=== PATIENT | male | born 1975 | race Caucasian/White ===

== ENCOUNTER 2017-02-17 00:02 | Inpatient (IN) | payer OTHER ==
[2017-02-17] VITALS (11 sets, daily range): BP systolic 98–130; BP diastolic 55–87; PULSE 64–85; RESP 15–20; TEMP 95.3–99.6; O2SAT 96–100
[~2017-02-17] VITALS: Ht 177.8 cm; Wt 61.0 kg
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
[2017-02-17] MEDS ORDERED: IOHEXOL 350 MG/ML 10 ML VIAL (for RAD DIAG) IVCONTRAST ONE (00:34)
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
[2017-02-17 00:36] LABS: I-STAT POTASSIUM 3.6 MMOL/L (3.5-4.9); I-STAT SODIUM 140 MMOL/L (138-146)
[2017-02-17] MEDS ORDERED: SODIUM CHLOR 0.9% 1000 ML INJ 1,000 ML IV SCH (00:39)
[2017-02-17] MEDS ORDERED: SODIUM CHLORIDE 0.9% FLUSH 10 ML FLUSH IVF PRN (00:45)
[2017-02-17] MEDS ORDERED: ceFAZolin 2 GM PREMIX 50 ML IV ONE (00:45)
[2017-02-17] MEDS ORDERED: ONDANSETRON HCL 4 MG/2 ML VIAL IVP ONE (00:45)
[2017-02-17] MEDS ORDERED: MORPHINE SULFATE 4 MG/ML INJ IV ONE (00:45)
[2017-02-17 00:46] LABS: APTT (PATIENT) 23.6 SEC (24.3-30.1); PROTHROMBIN TIME - PATIENT 10.7 SEC (9.8-11.6)
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
[2017-02-17 01:00] LABS: ALCOHOL LESS THAN 3 MG/DL (0-5)
[2017-02-17] MEDS ORDERED: Post-op Orders (for Pharmacy) MISC XX ONE (01:00)
[2017-02-17] MEDS ORDERED: ONDANSETRON HCL 4 MG/2 ML VIAL IV PRN (01:00)
[2017-02-17] MEDS ORDERED: SODIUM CHLORIDE 0.9% FLUSH 10 ML FLUSH IV FLUSH PRN (01:00)
[2017-02-17] MEDS ORDERED: NALOXONE HCL 0.4 MG/ML AMP IV PRN ×2 (01:00)
[2017-02-17 01:01] LABS: AUTOMATED NEUTROPHIL # 9.5 TH/MM3 (1.8-7.7); BASOPHIL # 0.1 TH/MM3 (0-0.2); BASOPHIL % 0.6 % (0.0-2.0); EOSINOPHIL % 6.9 % (0.0-4.0); HEMATOCRIT 39.3 % (39.0-51.0); HEMO FLAGS DIFF FINAL; LYMPH % 20.3 % (9.0-44.0); MEAN CELL VOLUME 93.9 FL (80.0-100.0); MEAN CORPUSCULAR HEMOGLOBIN 31.1 PG (27.0-34.0); MEAN CORPUSCULAR HGB CONC 33.1 % (32.0-36.0); MONO % 7.3 % (0.0-8.0); NEUT % 64.9 % (16.0-70.0); PLATELET COUNT 354 TH/MM3 (150-450); RED BLOOD COUNT 4.18 MIL/MM3 (4.50-5.90); RED CELL DISTRIBUTION WIDTH 12.8 % (11.6-17.2); WHITE BLOOD COUNT 14.7 TH/MM3 (4.0-11.0)
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
[2017-02-17] MEDS: PANTOPRAZOLE SOD 40 MG DELAYED RELEASE TAB PO SCH (01:23)
[2017-02-17] MEDS: SODIUM CHLOR 0.9% 1000 ML INJ 1,000 ML IV SCH ×4 (01:23→21:01)
[2017-02-17] MEDS: HYDROmorphone HCL PCA 6 MG/30 ML IV SCH ×2 (03:10→18:03)
[2017-02-17] MEDS: PCA - TOTAL MG DILAUDID DELIVERED PER SHIFT OTHER SCH ×3 (05:50→22:00)
[2017-02-17] MEDS ORDERED: ACETAMINOPHEN 1000 MG/100 ML 100 ML IV ONE (07:21)
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
[2017-02-17] MEDS ORDERED: FAMOTIDINE 20 MG/2 ML VIAL ONE (07:40)
[2017-02-17] MEDS: DOCUSATE SODIUM 100 MG CAP PO SCH ×2 (07:57→20:23)
[2017-02-17] MEDS: SODIUM CHLORIDE 0.9% FLUSH 10 ML FLUSH IV FLUSH SCH ×2 (07:57→20:29)
[2017-02-17] MEDS: LACTATED RINGER'S 1000 ML INJ 1,000 ML IV SCH ×3 (08:38→21:00)
--- NOTE | 2017-02-17 08:48 | PD.OP ---
cc: Perez Avelar MD Operative Report Date of Surgery: Feb 17, 2017 Preoperative Diagnosis: Left acetabular fracture dislocation Postoperative Diagnosis: Procedure: Closed reduction with manipulation of left acetabular fracture/hip dislocation, placement into skeletal traction Anesthesia: Gen. Surgeon: Perez Avelar Vice President Fixed Income(s): Willard Lebron PA-C The surgical procedure was assisted by my physician fish hatchery assistant. My P.A. presence was necessary throughout this case for the manipulation and positioning of the surgical extremity. My P.A. was assisting me throughout the duration of this procedure. The skill set of a physician fish hatchery assistant was medically necessary to complete this procedure. During the surgical case the certified surgical tech/first assistant was working at the back table and the physician fish hatchery assistant was directly assisting me. Operation and Findings: This patient was seen and evaluated preoperatively. Informed consent was confirmed. He is brought to operating room. He was given IV sedation and general anesthesia. Timeout procedure was performed. Procedure began with closed reduction of the hip. Gentle traction was applied. The hip was manipulated. The hip and I sent her fractures were visualized under fluoroscopy. The hip reduced well. The hip appeared to be relatively concentrically reduced. Next attention was turned to traction pin placement. The region around the knee was prepped with alcohol followed by DuraPrep. A small incision was made over the medial knee. A traction pin was now placed to the distal femur. Patient was transferred back to his bed. 20 pounds of skeletal traction was placed. Patient was awakened and transferred to recovery room in stable condition. He will need definitive surgery for open reduction internal fixation later this week. Perez Avelar MD Feb 17, 2017 08:48
[2017-02-17] MEDS ORDERED: DO NOT ADM ANY ANTICOAGULANT DRUGS PRN (08:57)
[2017-02-17] MEDS: ENOXAPARIN SODIUM 30 MG/0.3 ML SYRINGE SQ SCH ×2 (09:00→20:23)
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
--- NOTE | 2017-02-17 11:45 | RADRPT ---
EXAM DATE/TIME: 02/17/2017 08:40 [facility] COMPARISON: PELVIS (2VWS), February 17, 2017, 0:19. INDICATIONS : Closed reduction right hip. MEDICAL HISTORY : None. SURGICAL HISTORY : None. ENCOUNTER: Initial ACUITY: 1 day PAIN SCORE: Non-responsive. LOCATION: Right Hip FINDINGS: Examination reveals interval relocation of hip dislocation and some degree of reduction of the acetab ular and adjacent pelvic fractures. The visualized femoral head and neck appear intact. CONCLUSION: Interval reduction of hip dislocation Lupillo Van MD on February 17, 2017 at 11:42 Board Certified Radiologist. This report was verified electronically.
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
[2017-02-17 14:58] LABS: HEMATOCRIT 32.6 % (39.0-51.0); MEAN CELL VOLUME 94.9 FL (80.0-100.0); MEAN CORPUSCULAR HEMOGLOBIN 32.4 PG (27.0-34.0); MEAN CORPUSCULAR HGB CONC 34.1 % (32.0-36.0); PLATELET COUNT 301 TH/MM3 (150-450); RED BLOOD COUNT 3.43 MIL/MM3 (4.50-5.90); REVIEW FLAG FINAL; WHITE BLOOD COUNT 9.7 TH/MM3 (4.0-11.0)
[2017-02-17] MEDS ORDERED: PROPOFOL 200 MG/20 ML AMP IV ONE (15:29)
[2017-02-17] MEDS ORDERED: LIDOCAINE HCL 1% PF 5 ML AMPULE OTHER ONE (15:29)
[2017-02-17] MEDS ORDERED: SUCCINYLCHOLINE CHLORIDE 100 MG/5 ML SYRINGE IV PUSH ONE (15:29)
[2017-02-17] MEDS ORDERED: MIDAZOLAM HCL 2 MG/2 ML VIAL IV ONE (15:29)
[2017-02-17] MEDS: MAGNESIUM HYDROXIDE SUSP 30 ML CUP PO SCH (20:23)
[2017-02-17] MEDS: ACETAMINOPHEN/HYDROcodone 325 MG/10 MG TAB PO PRN (22:51)
[2017-02-18] VITALS (8 sets, daily range): BP systolic 110–133; BP diastolic 59–75; PULSE 83–105; RESP 16–21; TEMP 95.8–99.4; O2SAT 95–100
[2017-02-18] MEDS: PANTOPRAZOLE SOD 40 MG DELAYED RELEASE TAB PO SCH (02:22)
[2017-02-18] MEDS: ACETAMINOPHEN/HYDROcodone 325 MG/10 MG TAB PO PRN ×4 (02:23→22:33)
[2017-02-18] MEDS: SODIUM CHLOR 0.9% 1000 ML INJ 1,000 ML IV SCH (02:23)
[2017-02-18] MEDS: PCA - TOTAL MG DILAUDID DELIVERED PER SHIFT OTHER SCH ×3 (06:00→22:29)
--- NOTE | 2017-02-18 07:06 | PD.ORT.PN ---
Subjective Subjective Remarks Pain controlled. No new complaints Objective Vitals Vital Signs Date Time Temp Pulse Resp B/P (MAP) Pulse Ox O2 Delivery O2 Flow Rate FiO2 02/18/17 06:00 18 02/18/17 00:30 97.4 105 20 118/60 (79) 98 02/17/17 22:00 18 02/17/17 20:00 99.6 85 18 111/63 (79) 99 02/17/17 16:00 96.6 71 17 103/55 (71) 100 02/17/17 15:38 97 21 02/17/17 11:43 96.0 75 17 109/56 (73) 97 02/17/17 09:46 95.3 64 15 98/59 (72) 96 02/17/17 09:30 71 14 101/57 (72) 100 Room Air 02/17/17 09:15 62 14 93/52 (66) 100 Simple Mask 8 02/17/17 09:03 66 12 91/55 (67) 100 Simple Mask 8 02/17/17 09:00 97.2 67 20 92/50 (64) 100 Simple Mask 8 02/17/17 07:58 96.9 69 17 108/55 (72) 98 I/O 02/17/17 02/17/17 02/17/17 02/18/17 02/18/17 02/18/17 07:00 15:00 23:00 07:00 15:00 23:00 Intake Total 0 ml 2680 ml 480 ml 1450 ml Output Total 725 ml Balance 0 ml 2680 ml -245 ml 1450 ml Intake Oral 0 ml 480 ml 480 ml IV Total 1200 ml 1450 ml Other 1000 ml Output Urine Total 725 ml # Voids 0 0 # Bowel Movements 0 0 Result Diagram: 02/17/17 1408 Imaging Last [address] 02/17/1710 Signed Impressions: Service Date/Time: Friday, February 17, 2017 00:32 - CONCLUSION: Normal examination. Estevan Stevenson MD Chest X-Ray 02/17/1710 Signed Impressions: Service Date/Time: Friday, February 17, 2017 00:19 - CONCLUSION: No acute disease. Estevan Stevenson MD Chest CT 02/17/1710 Signed Impressions: Service Date/Time: Friday, February 17, 2017 00:38 - CONCLUSION: 1. Negative for acute traumatic injury within the thorax. No pneumothorax. Estevan Stevenson MD Cervical Spine CT 02/17/17 0011 Signed Impressions: Service Date/Time: Friday, February 17, 2017 00:32 - CONCLUSION: No acute findings. Estevan Stevenson MD Abdomen/Pelvis CT 02/17/17 0011 Signed Impressions: Service Date/Time: Friday, February 17, 2017 00:38 - CONCLUSION: 1. Posterior dislocation of the left hip associated with multiple left acetabular fractures as above. 2. Fracture right pubic bone extending into right superior pubic ramus and right inferior pubic ramus, mildly displaced. Estevan Stevenson MD Thoracic Spine CT 02/17/17 0000 Signed Impressions: Service Date/Time: Friday, February 17, 2017 00:38 - CONCLUSION: Mild degenerative change. No acute bony abnormality. Estevan Stevenson MD Pelvis X-Ray 02/17/17 0000 Signed Impressions: Service Date/Time: Friday, February 17, 2017 00:19 - CONCLUSION: 1. Comminuted fracture in the left hemipelvis probably around the acetabulum with subluxation of the femoral head. Mildly displaced fracture right pubic bone and superior pubic ramus. Estevan Stevenson MD Lumbar Spine CT 02/17/17 0000 Signed Impressions: Service Date/Time: Friday, February 17, 2017 00:38 - CONCLUSION: 1. 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 No acute bony abnormalities in the lumbar spine. Estevan Stevenson MD Objective Remarks Left lower extremity: Skeletal traction in place. He has intact sensation distally in his foot with strong dorsal flexion plantar flexion of foot. Intact distal pulses Assessment & Plan Assessment and Plan Left acetabular fracture status post skeletal traction POD 1 Maintain skeletal traction and bed rest Nothing by mouth after midnight Surgery tomorrow for open reduction fixation of left acetabulum Incentive spirometry Yosi Anand Jr. Feb 18, 2017 07:06
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
[2017-02-18] MEDS: SODIUM CHLORIDE 0.9% FLUSH 10 ML FLUSH IV FLUSH SCH ×2 (09:00→22:28)
[2017-02-18] MEDS: DOCUSATE SODIUM 100 MG CAP PO SCH ×2 (09:40→22:28)
[2017-02-18] MEDS: ENOXAPARIN SODIUM 30 MG/0.3 ML SYRINGE SQ SCH ×2 (09:40→22:29)
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
[2017-02-18] MEDS ORDERED: SODIUM CHLOR 0.9% 250 ML INJ 250 ML IV ONE (11:45)
[2017-02-18] MEDS: HYDROmorphone HCL PCA 6 MG/30 ML IV SCH (12:03)
[2017-02-18] MEDS ORDERED: ACETAMINOPHEN 1000 MG/100 ML VIAL IV ONE (12:15)
[2017-02-18] MEDS: CYCLOBENZAPRINE HCL 10 MG TAB PO SCH ×2 (14:00→22:30)
--- NOTE | 2017-02-18 17:27 | OTSOAPIP ---
TIME SESSION COMPLETED: AM TREATMENT TIME: 0 MINS. CHART REVIEWED. RECEIVED ORDER FOR OT CONSULT. PT IS PENDING ORTHO CONSULT AND OT EVALUATION DEFERRED UNTIL AFTER ORTHO INTERVENTION. Therapist: GLADIS GUZMAN OT/L Signature on file
[2017-02-18] MEDS: MAGNESIUM HYDROXIDE SUSP 30 ML CUP PO SCH (22:28)
[2017-02-19] VITALS (7 sets, daily range): BP systolic 112–129; BP diastolic 68–79; PULSE 76–96; RESP 16–18; TEMP 96.9–98.9; O2SAT 94–100
[2017-02-19] MEDS: PANTOPRAZOLE SOD 40 MG DELAYED RELEASE TAB PO SCH (00:32)
[2017-02-19] MEDS: CYCLOBENZAPRINE HCL 10 MG TAB PO SCH ×3 (06:12→22:31)
[2017-02-19] MEDS: PCA - TOTAL MG DILAUDID DELIVERED PER SHIFT OTHER SCH ×3 (06:12→22:00)
[2017-02-19] MEDS: ACETAMINOPHEN/HYDROcodone 325 MG/10 MG TAB PO PRN ×2 (06:12→09:28)
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
[2017-02-19] MEDS ORDERED: SODIUM CHLORID 0.9% 500 ML IV PRN (07:00)
[2017-02-19] MEDS ORDERED: POVIDONE IODINE 5% (ANTISEPSIS KIT) 4 APPLICATIONS EACH NARE PRN (07:00)
[2017-02-19] MEDS ORDERED: METOPROLOL TARTRATE 25 MG TAB PO PRN (07:00)
[2017-02-19] MEDS ORDERED: INSULIN HUMAN REGULAR 1,000 UNITS/10 ML VIAL SQ PRN (07:00)
[2017-02-19] MEDS ORDERED: LACTATED RINGER'S 1000 ML IV PRN (07:00)
[2017-02-19] MEDS ORDERED: CHLORHEXIDINE GLUCONATE 2 % 1 PACK (2 CLOTHS) TOPICAL PRN (07:00)
[2017-02-19] MEDS: SODIUM CHLORIDE 0.9% FLUSH 10 ML FLUSH IV FLUSH SCH ×2 (09:00→22:31)
[2017-02-19] MEDS: ENOXAPARIN SODIUM 30 MG/0.3 ML SYRINGE SQ SCH (09:27)
[2017-02-19] MEDS: DOCUSATE SODIUM 100 MG CAP PO SCH ×2 (09:28→22:31)
[2017-02-19] MEDS: LACTULOSE SYRUP 20 GM/30 ML CUP PO SCH (09:29)
[2017-02-19 09:47] LABS: AUTOMATED NEUTROPHIL # 7.5 TH/MM3 (1.8-7.7); BASOPHIL % 0.3 % (0.0-2.0); EOSINOPHIL # 0.5 TH/MM3 (0-0.4); EOSINOPHIL % 4.7 % (0.0-4.0); HEMATOCRIT 33.3 % (39.0-51.0); HEMO FLAGS DIFF FINAL; LYMPH % 13.3 % (9.0-44.0); LYMPHOCYTE # 1.4 TH/MM3 (1.0-4.8); MEAN CELL VOLUME 94.7 FL (80.0-100.0); MEAN CORPUSCULAR HEMOGLOBIN 32.6 PG (27.0-34.0); MEAN CORPUSCULAR HGB CONC 34.4 % (32.0-36.0); MONO % 12.7 % (0.0-8.0); PLATELET COUNT 297 TH/MM3 (150-450); RED BLOOD COUNT 3.51 MIL/MM3 (4.50-5.90); RED CELL DISTRIBUTION WIDTH 12.6 % (11.6-17.2); WHITE BLOOD COUNT 10.8 TH/MM3 (4.0-11.0)
[2017-02-19 10:15] LABS: ANION GAP 5 MEQ/L (5-15); AST (GOT) 49 U/L (15-37); BICARBONATE 31.8 MEQ/L (21.0-32.0); BLOOD UREA NITROGEN 8 MG/DL (7-18); CHLORIDE 94 MEQ/L (98-107); GLOMERULAR FILTRATION RATE 136 ML/MIN (>89); SODIUM (NA) 131 MEQ/L (136-145)
[2017-02-19 10:16] LABS: ALT (GPT) 35 U/L (12-78)
[2017-02-19 10:18] LABS: ALKALINE PHOSPHATASE 50 U/L (45-117); TOTAL BILIRUBIN ADULT 0.6 MG/DL (0.2-1.0)
[2017-02-19] MEDS ORDERED: BISACODYL EC 5 MG TABEC PO ONE (11:30)
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
[2017-02-19] MEDS: HYDROmorphone HCL PCA 6 MG/30 ML IV SCH (12:33)
[2017-02-19] MEDS: MAGNESIUM HYDROXIDE SUSP 30 ML CUP PO SCH (22:31)
[2017-02-20 00:41] VITALS: BP 125/79; PULSE 86; RESP 17; TEMP 98.9; O2SAT 100
[2017-02-20] MEDS: PANTOPRAZOLE SOD 40 MG DELAYED RELEASE TAB PO SCH (01:03)
[2017-02-20] MEDS: ACETAMINOPHEN/HYDROcodone 325 MG/10 MG TAB PO PRN (01:10)
[2017-02-20 04:00] VITALS: BP 128/76; PULSE 83; RESP 18; TEMP 97.2; O2SAT 100
[2017-02-20] MEDS: PCA - TOTAL MG DILAUDID DELIVERED PER SHIFT OTHER SCH ×2 (06:00→14:00)
[2017-02-20] MEDS: CYCLOBENZAPRINE HCL 10 MG TAB PO SCH ×3 (06:29→22:00)
--- NOTE | 2017-02-20 06:48 | PD.ORT.PN ---
Subjective Subjective Remarks POD 3 s/p traction pin with reduction of left hip left acetabulum fracture doing well. pain controlled Objective Vitals Vital Signs Date Time Temp Pulse Resp B/P (MAP) Pulse Ox O2 Delivery O2 Flow Rate FiO2 02/20/17 04:00 97.2 83 18 128/76 (93) 100 02/19/17 23:30 98.1 87 18 120/70 (87) 100 02/19/17 22:00 15 02/19/17 19:30 98.8 86 16 112/71 (85) 98 02/19/17 16:00 97.1 76 17 129/77 (94) 99 02/19/17 14:00 16 02/19/17 13:13 18 02/19/17 12:33 18 02/19/17 12:00 96.9 83 17 117/79 (92) 94 02/19/17 10:30 16 02/19/17 08:00 97.6 83 16 116/73 (87) 98 I/O 02/19/17 02/19/17 02/19/17 02/20/17 02/20/17 02/20/17 07:00 15:00 23:00 07:00 15:00 23:00 Intake Total 240 ml 200 ml 240 ml Output Total 400 ml 500 ml 400 ml Balance -160 ml -300 ml -160 ml Intake Oral 240 ml 200 ml 240 ml Output Urine Total 400 ml 500 ml 400 ml # Bowel Movements 0 0 0 Result Diagram: 02/19/17 0832 02/19/17 0832 Imaging Last [address] 02/17/1710 Signed Impressions: Service Date/Time: Friday, February 17, 2017 00:32 - CONCLUSION: Normal examination. Estevan Stevenson MD Chest X-Ray 02/17/1710 Signed Impressions: Service Date/Time: Friday, February 17, 2017 00:19 - CONCLUSION: No acute disease. Estevan Stevenson MD Chest CT 02/17/1710 Signed Impressions: Service Date/Time: Friday, February 17, 2017 00:38 - CONCLUSION: 1. Negative for acute traumatic injury within the thorax. No pneumothorax. Estevan Stevenson MD Cervical Spine CT 02/17/1710 Signed Impressions: Service Date/Time: Friday, February 17, 2017 00:32 - CONCLUSION: No acute findings. Estevan Stevenson MD Abdomen/Pelvis CT 02/17/17 0011 Signed Impressions: Service Date/Time: Friday, February 17, 2017 00:38 - CONCLUSION: 1. Posterior dislocation of the left hip associated with multiple left acetabular fractures as above. 2. Fracture right pubic bone extending into right superior pubic ramus and right inferior pubic ramus, mildly displaced. Estevan Stevenson MD Thoracic Spine CT 02/17/17 0000 Signed Impressions: Service Date/Time: Friday, February 17, 2017 00:38 - CONCLUSION: Mild degenerative change. No acute bony abnormality. Estevan Stevenson MD Pelvis X-Ray 02/17/17 0000 Signed Impressions: Service Date/Time: Friday, February 17, 2017 00:19 - CONCLUSION: 1. Comminuted fracture in the left hemipelvis probably around the acetabulum with subluxation of the femoral head. Mildly displaced fracture right pubic bone and superior pubic ramus. Estevan Stevenson MD Lumbar Spine CT 02/17/17 0000 Signed Impressions: Service Date/Time: Friday, February 17, 2017 00:38 - CONCLUSION: 1. 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 No acute bony abnormalities in the lumbar spine. Estevan Stevenson MD Objective Remarks Left lower extremity: Skeletal traction in place. He has intact sensation distally in his foot with strong dorsal flexion plantar flexion of foot. Intact distal pulses Assessment & Plan Assessment and Plan 1) Left acetabular fracture status post skeletal traction POD 3 Maintain skeletal traction and bed rest resume diet npo after MN 1x dose of lovenox this AM surgery Friday sign consents Willard Lebron Feb 20, 2017 06:48
[2017-02-20 06:49] LABS: BICARBONATE 29.3 MEQ/L (21.0-32.0); POTASSIUM 4.4 MEQ/L (3.5-5.1)
[2017-02-20 06:59] LABS: HEMATOCRIT 31.7 % (39.0-51.0); MEAN CELL VOLUME 92.2 FL (80.0-100.0); MEAN CORPUSCULAR HEMOGLOBIN 31.7 PG (27.0-34.0); MEAN CORPUSCULAR HGB CONC 34.4 % (32.0-36.0); PLATELET COUNT 260 TH/MM3 (150-450); RED BLOOD COUNT 3.44 MIL/MM3 (4.50-5.90); RED CELL DISTRIBUTION WIDTH 12.6 % (11.6-17.2); REVIEW FLAG FINAL; WHITE BLOOD COUNT 8.9 TH/MM3 (4.0-11.0)
[2017-02-20] MEDS ORDERED: ENOXAPARIN SODIUM 30 MG/0.3 ML SYRINGE SQ ONE (07:00)
[2017-02-20] MEDS: SODIUM CHLORIDE 0.9% FLUSH 10 ML FLUSH IV FLUSH SCH (07:19)
[2017-02-20] MEDS: DOCUSATE SODIUM 100 MG CAP PO SCH ×2 (07:19→21:00)
[2017-02-20] MEDS: LACTULOSE SYRUP 20 GM/30 ML CUP PO SCH (07:19)
[2017-02-20] MEDS ORDERED: BISACODYL 10 MG SUPP RECTAL ONE (07:45)
[2017-02-20] MEDS ORDERED: BISACODYL EC 5 MG TABEC PO ONE (07:45)
[2017-02-20 08:00] VITALS: BP 129/78; PULSE 89; RESP 18; TEMP 97.2; O2SAT 99
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
[2017-02-20 11:50] VITALS: BP 131/78; PULSE 78; RESP 18; TEMP 97; O2SAT 99
[2017-02-20 16:00] VITALS: BP 135/78; PULSE 82; RESP 18; TEMP 98; O2SAT 98
[2017-02-20] MEDS: HYDROmorphone HCL PCA 6 MG/30 ML IV SCH (16:31)
[2017-02-20 20:00] VITALS: BP 129/76; PULSE 84; RESP 17; TEMP 98; O2SAT 98
[2017-02-20] MEDS: MAGNESIUM HYDROXIDE SUSP 30 ML CUP PO SCH (21:00)
[2017-02-21] VITALS: BP 125/79; PULSE 86; RESP 17; TEMP 98.9; O2SAT 100
[2017-02-21] MEDS: PANTOPRAZOLE SOD 40 MG DELAYED RELEASE TAB PO SCH (01:00)
[2017-02-21 04:00] VITALS: BP 142/78; PULSE 82; RESP 17; TEMP 98.7; O2SAT 97
[2017-02-21] MEDS: PCA - TOTAL MG DILAUDID DELIVERED PER SHIFT OTHER SCH (06:00)
[2017-02-21] MEDS: CYCLOBENZAPRINE HCL 10 MG TAB PO SCH ×3 (06:30→22:00)
[2017-02-21] MEDS ORDERED: WALKER/ADULT/FO1 MIS (06:54)
[2017-02-21] MEDS ORDERED: XARE10TA PO (06:54)
[2017-02-21] MEDS ORDERED: HYDR-3583 PO (06:54)
--- NOTE | 2017-02-21 07:01 | PD.ORT.PN ---
Subjective Subjective Remarks Pain controlled. No new complaints Objective Vitals Vital Signs Date Time Temp Pulse Resp B/P (MAP) Pulse Ox O2 Delivery O2 Flow Rate FiO2 02/21/17 04:00 98.7 82 17 142/78 (99) 97 02/21/17 00:00 98.9 86 17 125/79 (94) 100 02/20/17 20:00 98.0 84 17 129/76 (93) 98 02/20/17 17:09 16 02/20/17 16:31 16 02/20/17 16:00 98.0 82 18 135/78 (97) 98 02/20/17 14:00 16 02/20/17 11:50 97.0 78 18 131/78 (95) 99 02/20/17 08:00 97.2 89 18 129/78 (95) 99 I/O 02/20/17 02/20/17 02/20/17 02/21/17 02/21/17 02/21/17 07:00 15:00 23:00 07:00 15:00 23:00 Intake Total 840 ml 240 ml 0 ml Output Total 1150 ml 800 ml 400 ml Balance -310 ml -560 ml -400 ml Intake Oral 840 ml 240 ml 0 ml Output Urine Total 1150 ml 800 ml 400 ml # Bowel Movements 0 0 0 Result Diagram: 02/20/17 0555 02/20/17 0555 Imaging Last [address] 02/17/1710 Signed Impressions: Service Date/Time: Friday, February 17, 2017 00:32 - CONCLUSION: Normal examination. Estevan Stevenson MD Chest X-Ray 02/17/1710 Signed Impressions: Service Date/Time: Friday, February 17, 2017 00:19 - CONCLUSION: No acute disease. Estevan Stevenson MD Chest CT 02/17/1710 Signed Impressions: Service Date/Time: Friday, February 17, 2017 00:38 - CONCLUSION: 1. Negative for acute traumatic injury within the thorax. No pneumothorax. Estevan Stevenson MD Cervical Spine CT 02/17/1710 Signed Impressions: Service Date/Time: Friday, February 17, 2017 00:32 - CONCLUSION: No acute findings. Estevan Stevenson MD Abdomen/Pelvis CT 02/17/1710 Signed Impressions: Service Date/Time: Friday, February 17, 2017 00:38 - CONCLUSION: 1. Posterior dislocation of the left hip associated with multiple left acetabular fractures as above. 2. Fracture right pubic bone extending into right superior pubic ramus and right inferior pubic ramus, mildly displaced. Estevan Stevenson MD Thoracic Spine CT 02/17/17 0000 Signed Impressions: Service Date/Time: Friday, February 17, 2017 00:38 - CONCLUSION: Mild degenerative change. No acute bony abnormality. Estevan Stevenson MD Pelvis X-Ray 02/17/17 0000 Signed Impressions: Service Date/Time: Friday, February 17, 2017 00:19 - CONCLUSION: 1. Comminuted fracture in the left hemipelvis probably around the acetabulum with subluxation of the femoral head. Mildly displaced fracture right pubic bone and superior pubic ramus. Estevan Stevenson MD Lumbar Spine CT 02/17/17 0000 Signed Impressions: Service Date/Time: Friday, February 17, 2017 00:38 - CONCLUSION: 1. 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 No acute bony abnormalities in the lumbar spine. Estevan Stevenson MD Objective Remarks Left lower extremity: Skeletal traction in place. He has intact sensation distally in his foot with strong dorsal flexion/ plantar flexion of foot. Intact distal pulses Assessment & Plan Assessment and Plan 1) Left acetabular fracture status post skeletal traction POD 4 Maintain skeletal traction and bed rest npo Surgery today sign consents Yosi Anand Jr. Feb 21, 2017 07:01
[2017-02-21] MEDS: SODIUM CHLORIDE 0.9% FLUSH 10 ML FLUSH IV FLUSH SCH ×2 (07:44→23:55)
[2017-02-21] MEDS: DOCUSATE SODIUM 100 MG CAP PO SCH ×2 (07:44→21:00)
[2017-02-21 08:00] VITALS: BP 121/79; PULSE 80; RESP 18; TEMP 97.3; O2SAT 98
[2017-02-21] MEDS ORDERED: TRANEXAMIC ACID INJ 915 MG in SODIUM CHLORIDE 0.9% INJ 100 ML IV SCH (09:00)
[2017-02-21] MEDS: LACTULOSE SYRUP 20 GM/30 ML CUP PO SCH (09:00)
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
[2017-02-21 10:30] VITALS: BP 135/83; PULSE 86; RESP 18; TEMP 97.8; O2SAT 100
[2017-02-21] MEDS ORDERED: VANCOMYCIN HCL 1000 MG VIAL ONE (11:48)
[2017-02-21] MEDS ORDERED: HEPARIN SODIUM - SQ 10,000 UNITS/ML VIAL ONE (11:48)
[2017-02-21] MEDS ORDERED: GENTAMICIN SULFATE 80 MG/2 ML VIAL ONE (11:49)
[2017-02-21] MEDS ORDERED: SODIUM CHLOR 0.9% 250 ML INJ 250 ML ONE (11:49)
[2017-02-21] MEDS ORDERED: MIDAZOLAM HCL 2 MG/2 ML VIAL ONE (13:22)
[2017-02-21] MEDS ORDERED: ACETAMINOPHEN 1000 MG/100 ML 100 ML IV ONE (13:22)
[2017-02-21] MEDS ORDERED: FAMOTIDINE 20 MG/2 ML VIAL ONE (13:22)
[2017-02-21] MEDS ORDERED: ceFAZolin 2 GM PREMIX 50 ML ONE (13:53)
[2017-02-21] MEDS ORDERED: MAGNESIUM CITRATE SOLN 300 ML BTL PO ONE (14:00)
[2017-02-21] MEDS ORDERED: PHENYLEPH/NS 1000 MCG/10 ML SYR IV ONE (15:31)
[2017-02-21] MEDS ORDERED: NORMOSOL R INJ 2,000 ML IV ONE (15:31)
[2017-02-21] MEDS ORDERED: NEOSTIGMINE 3 MG/3 ML SYR IV ONE (15:31)
[2017-02-21] MEDS ORDERED: PROPOFOL 200 MG/20 ML AMP IV ONE (15:31)
[2017-02-21] MEDS ORDERED: ONDANSETRON HCL 4 MG/2 ML VIAL IV PUSH ONE (15:31)
[2017-02-21] MEDS ORDERED: LACTATED RINGER'S 1000 ML INJ 1,000 ML IV ONE ×2 (15:31→20:15)
[2017-02-21 15:46] LABS: AUTOMATED NEUTROPHIL # 6.5 TH/MM3 (1.8-7.7); BASOPHIL % 0.1 % (0.0-2.0); EOSINOPHIL # 0.4 TH/MM3 (0-0.4); EOSINOPHIL % 4.3 % (0.0-4.0); HEMATOCRIT 28.1 % (39.0-51.0); HEMO FLAGS DIFF FINAL; LYMPHOCYTE # 0.8 TH/MM3 (1.0-4.8); MEAN CELL VOLUME 93.2 FL (80.0-100.0); MEAN CORPUSCULAR HEMOGLOBIN 32.4 PG (27.0-34.0); MEAN CORPUSCULAR HGB CONC 34.8 % (32.0-36.0); MONO % 8.5 % (0.0-8.0); NEUT % 77.1 % (16.0-70.0); PLATELET COUNT 342 TH/MM3 (150-450); RED BLOOD COUNT 3.01 MIL/MM3 (4.50-5.90); RED CELL DISTRIBUTION WIDTH 12.5 % (11.6-17.2); WHITE BLOOD COUNT 8.4 TH/MM3 (4.0-11.0)
[2017-02-21 16:41] LABS: BLOOD GAS BASE EXCESS -0.4 mmol/L (-2-2); BLOOD GAS CARBOXYHEMOGLOBIN 2.2 % (0-4); BLOOD GAS HCO3 24 mmol/L (22-26); BLOOD GAS METHEMOGLOBIN 1.1 % (0-2); BLOOD GAS O2 HGB SATURATION 97 % (90-100); BLOOD GAS OXYGEN CONTENT 13.8 Vol % (12.0-20.0); BLOOD GAS PCO2 38 mmHg (38-42); BLOOD GAS PO2 232 mmHg (61-120); BLOOD GAS TOTAL HGB 9.8 G/DL (12.0-16.0); CRITICAL VALUE NO; FIO2 50 %; OXYGEN DEVICE O.R.; STAT YES; TEMP CORR TO 98.6
--- NOTE | 2017-02-21 17:38 | PD.ORT.PN ---
Subjective Subjective Remarks POD 0 s/p removal of skeletal traction with ORIF of left acetabulum stable in PACU Objective Vitals Vital Signs Date Time Temp Pulse Resp B/P (MAP) Pulse Ox O2 Delivery O2 Flow Rate FiO2 02/21/17 10:30 97.8 86 18 135/83 (100) 100 02/21/17 08:00 97.3 80 18 121/79 (93) 98 02/21/17 06:00 15 02/21/17 04:00 98.7 82 17 142/78 (99) 97 02/21/17 00:00 98.9 86 17 125/79 (94) 100 02/20/17 20:00 98.0 84 17 129/76 (93) 98 I/O 02/20/17 02/20/17 02/20/17 02/21/17 02/21/17 02/21/17 07:00 15:00 23:00 07:00 15:00 23:00 Intake Total 840 ml 240 ml 0 ml Output Total 1150 ml 800 ml 400 ml Balance -310 ml -560 ml -400 ml Intake Oral 840 ml 240 ml 0 ml Output Urine Total 1150 ml 800 ml 400 ml # Bowel Movements 0 0 0 Result Diagram: 02/21/17 1531 02/20/17 0555 Imaging Last [address] 02/17/1710 Signed Impressions: Service Date/Time: Friday, February 17, 2017 00:32 - CONCLUSION: Normal examination. Estevan Stevenson MD Chest X-Ray 02/17/1710 Signed Impressions: Service Date/Time: Friday, February 17, 2017 00:19 - CONCLUSION: No acute disease. Estevan Stevenson MD Chest CT 02/17/1710 Signed Impressions: Service Date/Time: Friday, February 17, 2017 00:38 - CONCLUSION: 1. Negative for acute traumatic injury within the thorax. No pneumothorax. Estevan Stevenson MD Cervical Spine CT 02/17/1710 Signed Impressions: Service Date/Time: Friday, February 17, 2017 00:32 - CONCLUSION: No acute findings. Estevan Stevenson MD Abdomen/Pelvis CT 02/17/1710 Signed Impressions: Service Date/Time: Friday, February 17, 2017 00:38 - CONCLUSION: 1. Posterior dislocation of the left hip associated with multiple left acetabular fractures as above. 2. Fracture right pubic bone extending into right superior pubic ramus and right inferior pubic ramus, mildly displaced. Estevan Stevenson MD Thoracic Spine CT 02/17/17 0000 Signed Impressions: Service Date/Time: Friday, February 17, 2017 00:38 - CONCLUSION: Mild degenerative change. No acute bony abnormality. Estevan Stevenson MD Pelvis X-Ray 02/17/17 0000 Signed Impressions: Service Date/Time: Friday, February 17, 2017 00:19 - CONCLUSION: 1. Comminuted fracture in the left hemipelvis probably around the acetabulum with subluxation of the femoral head. Mildly displaced fracture right pubic bone and superior pubic ramus. Estevan Stevenson MD Lumbar Spine CT 02/17/17 0000 Signed Impressions: Service Date/Time: Friday, February 17, 2017 00:38 - CONCLUSION: 1. 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 No acute bony abnormalities in the lumbar spine. Estevan Stevenson MD Objective Remarks Left lower extremity: dressings clean and dry. intact. +drain. +CKS Assessment & Plan Assessment and Plan 1) Left acetabular fracture status post removal of skeletal traction and ORIF - POD 0 -NWB -posterior hip precautions -daily dressing changes POD 2 -DC drain POD 2 if minimal drainage -DVT prophylaxis with lovenox. DC with xarelto -Pain Rx on chart -CKS while in bed -CM for DC planning: Home vs SNF -f/u wt [facility] or [facility] in 2 weeks Willard Lebron Feb 21, 2017 17:38
[2017-02-21] MEDS ORDERED: LACTATED RINGER'S 1000 ML INJ 1,000 ML IV SCH (17:48)
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
[2017-02-21] MEDS ORDERED: MISCELLANEOUS PHARMACY INFORMATION XX ONE (18:00)
[2017-02-21] MEDS ORDERED: MORPHINE SULFATE 4 MG/ML INJ IV PUSH PRN (18:00)
[2017-02-21] MEDS ORDERED: LORazepam 2 MG/ML VIAL IV ONE (18:00)
[2017-02-21] MEDS ORDERED: ACETAMINOPHEN/HYDROcodone 325 MG/10 MG TAB PO PRN (18:00)
[2017-02-21] MEDS ORDERED: NALOXONE HCL 0.4 MG/ML AMP IV PRN (18:00)
[2017-02-21] MEDS ORDERED: MISCELLANEOUS NURSING INFORMATION XX PRN (18:00)
--- NOTE | 2017-02-21 18:10 | RADRPT ---
EXAM DATE/TIME: 02/21/2017 17:18 [place] COMPARISON: FLUOROSCOPY PORTABLE UP TO 1HR, February 21, 2017, 0:00. INDICATIONS : ORIF lt acetabulum. MEDICAL HISTORY : None. SURGICAL HISTORY : None. ENCOUNTER: Subsequent ACUITY: 1 day PAIN SCORE: Non-responsive. LOCATION: Left Acetabulum FINDINGS: The examination demonstrates interval ORIF of a left acetabular fracture. The alignment post fixation is excellent. CONCLUSION: 1. Excellent alignment of the acetabular fracture post fixation. Familia Rodriguez MD on February 21, 2017 at 18:09 Board Certified Radiologist. This report was verified electronically.
[2017-02-21 18:21] LABS: HEMATOCRIT 24.4 % (39.0-51.0); REVIEW FLAG FINAL
[2017-02-21] MEDS ORDERED: DO NOT ADM ANY ANTICOAGULANT DRUGS PRN (18:27)
[2017-02-21] MEDS ORDERED: *morphine SULFATE 8 MG/ML PERIprocedure ONLY ONE (18:42)
[2017-02-21] MEDS ORDERED: LORazepam 2 MG/ML VIAL ONE (18:48)
[2017-02-21] MEDS: MORPHINE SULFATE 30 MG/30 ML PCA IV SCH (19:00)
[2017-02-21] MEDS ORDERED: LACTATED RINGER'S 1000 ML INJ 500 ML IV ONE (20:15)
[2017-02-21 20:44] LABS: HEMATOCRIT 26.6 % (39.0-51.0); REVIEW FLAG FINAL
[2017-02-21] MEDS: MAGNESIUM HYDROXIDE SUSP 30 ML CUP PO SCH (21:00)
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
[2017-02-21] MEDS ORDERED: MAGN400S PO (21:25)
[2017-02-21] MEDS ORDERED: DOCU1CAP39 PO (21:25)
[2017-02-21 21:40] VITALS: BP 120/71; PULSE 98; RESP 16; TEMP 97.1; O2SAT 98
[2017-02-21] MEDS: PCA - TOTAL MG MORPHINE DELIVERED PER SHIFT SCH (22:00)
[2017-02-22] VITALS (7 sets, daily range): BP systolic 100–121; BP diastolic 53–73; PULSE 101–110; RESP 16–18; TEMP 96.2–98.3; O2SAT 96–100
[2017-02-22] MEDS: ceFAZolin 2 GM PREMIX 50 ML IV SCH ×4 (00:03→22:55)
[2017-02-22] MEDS: PANTOPRAZOLE SOD 40 MG DELAYED RELEASE TAB PO SCH (01:09)
[2017-02-22] MEDS: VANCOMYCIN INJ 1,000 MG in SODIUM CHLOR 0.9% 250 ML INJ 250 ML IV SCH ×2 (04:32→16:50)
[2017-02-22] MEDS: CYCLOBENZAPRINE HCL 10 MG TAB PO SCH ×3 (05:30→22:00)
[2017-02-22] MEDS: ACETAMINOPHEN/HYDROcodone 325 MG/10 MG TAB PO PRN (05:30)
[2017-02-22] MEDS: PCA - TOTAL MG MORPHINE DELIVERED PER SHIFT SCH ×3 (06:00→22:00)
[2017-02-22] MEDS: ENOXAPARIN SODIUM 30 MG/0.3 ML SYRINGE SQ SCH ×2 (06:08→17:07)
[2017-02-22] MEDS ORDERED: BISACODYL 10 MG SUPP RECTAL ONE (08:00)
[2017-02-22] MEDS ORDERED: BISACODYL EC 5 MG TABEC PO ONE (08:00)
--- NOTE | 2017-02-22 08:11 | PD.ORT.PN ---
Subjective Post Op Day #: 1 Subjective Remarks pain under control. Objective Vitals Vital Signs Date Time Temp Pulse Resp B/P (MAP) Pulse Ox O2 Delivery O2 Flow Rate FiO2 02/22/17 07:55 96.9 110 18 121/73 (89) 100 02/22/17 06:00 15 02/22/17 03:45 97.0 101 16 119/69 (86) 100 02/21/17 22:00 15 02/21/17 21:45 124 12 122/65 (84) 99 Room Air 02/21/17 21:40 97.1 98 16 120/71 (87) 98 02/21/17 21:15 122 12 124/73 (90) 100 Room Air 02/21/17 20:45 126 14 131/70 (90) 100 Room Air 02/21/17 20:30 134 22 98 Room Air 02/21/17 20:15 139 26 128/71 (90) 98 Room Air 02/21/17 20:00 97.7 145 22 133/80 (97) 97 Room Air 02/21/17 19:45 136 26 144/87 (106) 97 Room Air 02/21/17 19:30 125 17 97 Room Air 02/21/17 19:15 116 17 138/82 (100) 98 Room Air 02/21/17 19:00 117 16 139/73 (95) 96 Room Air 02/21/17 19:00 16 02/21/17 18:45 120 25 Simple Mask 6 02/21/17 18:30 112 17 144/66 (92) 100 Simple Mask 6 02/21/17 18:28 97.6 102 15 130/78 (95) 100 Simple Mask 6 02/21/17 10:30 97.8 86 18 135/83 (100) 100 I/O 02/21/17 02/21/17 02/21/17 02/22/17 02/22/17 02/22/17 07:00 15:00 23:00 07:00 15:00 23:00 Intake Total 0 ml 4023 ml 120 ml Output Total 400 ml 3260 ml 1350 ml Balance -400 ml 763 ml -1230 ml Intake Oral 0 ml 360 ml 120 ml IV Total 935 ml Autotransfusion 328 ml Other 2400 ml Output Urine Total 400 ml 2200 ml 1350 ml Drainage Total 60 ml Estimated Blood Loss 1000 ml # Bowel Movements 0 0 0 Result Diagram: 02/21/17203102/20/17 0555 Imaging Last [address] 02/17/1710 Signed Impressions: Service Date/Time: Friday, February 17, 2017 00:32 - CONCLUSION: Normal examination. Estevan Stevenson MD Chest X-Ray 02/17/1710 Signed Impressions: Service Date/Time: Friday, February 17, 2017 00:19 - CONCLUSION: No acute disease. Estevan Stevenson MD Chest CT 02/17/1710 Signed Impressions: Service Date/Time: Friday, February 17, 2017 00:38 - CONCLUSION: 1. Negative for acute traumatic injury within the thorax. No pneumothorax. Estevan Stevenson MD Cervical Spine CT 02/17/1710 Signed Impressions: Service Date/Time: Friday, February 17, 2017 00:32 - CONCLUSION: No acute findings. Estevan Stevenson MD Abdomen/Pelvis CT 02/17/1710 Signed Impressions: Service Date/Time: Friday, February 17, 2017 00:38 - CONCLUSION: 1. Posterior dislocation of the left hip associated with multiple left acetabular fractures as above. 2. Fracture right pubic bone extending into right superior pubic ramus and right inferior pubic ramus, mildly displaced. Estevan Stevenson MD Thoracic Spine CT 02/17/17 0000 Signed Impressions: Service Date/Time: Friday, February 17, 2017 00:38 - CONCLUSION: Mild degenerative change. No acute bony abnormality. Estevan Stevenson MD Pelvis X-Ray 02/17/17 0000 Signed Impressions: Service Date/Time: Friday, February 17, 2017 00:19 - CONCLUSION: 1. Comminuted fracture in the left hemipelvis probably around the acetabulum with subluxation of the femoral head. Mildly displaced fracture right pubic bone and superior pubic ramus. Estevan Stevenson MD Lumbar Spine CT 02/17/17 0000 Signed Impressions: Service Date/Time: Friday, February 17, 2017 00:38 - CONCLUSION: 1. 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 No acute bony abnormalities in the lumbar spine. Estevan Stevenson MD Objective Remarks Left lower extremity: dressings with drainage. +drain. +CKS. NVI. sensation intact. cap refill. Assessment & Plan Ortho Post Op Day #: 1 Problem List: Assessment and Plan 1) Left acetabular fracture status post removal of skeletal traction and ORIF - POD 1 -NWB -posterior hip precautions -daily dressing changes start today due to drainage -DC drain POD 2 if minimal drainage -DVT prophylaxis with lovenox. DC with xarelto -Pain Rx on chart -CKS while in bed -CM for DC planning: Home vs SNF -f/u [facility] [place] or [facility] in 2 weeks Alan Pratt Feb 22, 2017 08:11
[2017-02-22] MEDS: INDOMETHACIN 75 MG CONTROLLED RELEASE CAP PO SCH (08:21)
[2017-02-22] MEDS: SODIUM CHLORIDE 0.9% FLUSH 10 ML FLUSH IV FLUSH SCH ×2 (08:21→20:59)
[2017-02-22] MEDS: DOCUSATE SODIUM 100 MG CAP PO SCH ×2 (08:21→20:59)
[2017-02-22] MEDS: LACTULOSE SYRUP 20 GM/30 ML CUP PO SCH (08:21)
[2017-02-22] MEDS: MORPHINE SULFATE 30 MG/30 ML PCA IV SCH (08:22)
[2017-02-22 08:33] LABS: REVIEW FLAG FINAL
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
[2017-02-22] MEDS: MAGNESIUM HYDROXIDE SUSP 30 ML CUP PO SCH (20:59)
[2017-02-23] MEDS: PANTOPRAZOLE SOD 40 MG DELAYED RELEASE TAB PO SCH (00:17)
[2017-02-23 00:45] VITALS: BP 121/59; PULSE 115; RESP 17; TEMP 100.6; O2SAT 100
[2017-02-23] MEDS: VANCOMYCIN INJ 1,000 MG in SODIUM CHLOR 0.9% 250 ML INJ 250 ML IV SCH ×2 (03:32→16:34)
[2017-02-23 04:45] VITALS: BP 123/57; PULSE 110; RESP 18; TEMP 100.1; O2SAT 100
[2017-02-23] MEDS: PCA - TOTAL MG MORPHINE DELIVERED PER SHIFT SCH (06:00)
[2017-02-23] MEDS: ENOXAPARIN SODIUM 30 MG/0.3 ML SYRINGE SQ SCH ×2 (06:10→18:59)
[2017-02-23] MEDS: ceFAZolin 2 GM PREMIX 50 ML IV SCH ×3 (06:11→22:19)
[2017-02-23] MEDS: CYCLOBENZAPRINE HCL 10 MG TAB PO SCH ×3 (06:11→22:19)
[2017-02-23 07:00] VITALS: BP 130/62; PULSE 103; RESP 16; TEMP 96.6; O2SAT 97
[2017-02-23] MEDS ORDERED: MAGNESIUM CITRATE SOLN 300 ML BTL PO ONE (08:00)
--- NOTE | 2017-02-23 08:07 | PD.ORT.PN ---
Subjective Post Op Day #: 2 Subjective Remarks pain under control. feeling better today. Objective Vitals Vital Signs Date Time Temp Pulse Resp B/P (MAP) Pulse Ox O2 Delivery O2 Flow Rate FiO2 02/23/17 06:00 17 02/23/17 04:45 100.1 110 18 123/57 (79) 100 02/23/17 00:45 100.6 115 17 121/59 (79) 100 02/22/17 22:00 4 02/22/17 20:40 98.3 108 16 118/53 (74) 100 02/22/17 18:01 98 21 02/22/17 16:00 96.2 102 16 116/62 (80) 100 02/22/17 15:00 18 02/22/17 11:53 97.2 108 18 100/65 (77) 100 02/22/17 11:50 96 21 02/22/17 08:22 18 I/O 02/22/17 02/22/17 02/22/17 02/23/17 02/23/17 02/23/17 07:00 15:00 23:00 07:00 15:00 23:00 Intake Total 120 ml 240 ml 540 ml 590 ml Output Total 1350 ml 870 ml 730 ml 660 ml Balance -1230 ml -630 ml -190 ml -70 ml Intake Oral 120 ml 240 ml 240 ml 240 ml IV Total 300 ml 350 ml Output Urine Total 1350 ml 800 ml 700 ml 650 ml Drainage Total 70 ml 30 ml 10 ml # Voids 0 # Bowel Movements 0 0 0 Result Diagram: 02/22/17 0754 02/20/17 0555 Imaging Last [address] 02/17/1710 Signed Impressions: Service Date/Time: Friday, February 17, 2017 00:32 - CONCLUSION: Normal examination. Estevan Stevenson MD Chest X-Ray 02/17/1710 Signed Impressions: Service Date/Time: Friday, February 17, 2017 00:19 - CONCLUSION: No acute disease. Estevan Stevenson MD Chest CT 02/17/1710 Signed Impressions: Service Date/Time: Friday, February 17, 2017 00:38 - CONCLUSION: 1. Negative for acute traumatic injury within the thorax. No pneumothorax. Estevan Stevenson MD Cervical Spine CT 02/17/1710 Signed Impressions: Service Date/Time: Friday, February 17, 2017 00:32 - CONCLUSION: No acute findings. Estevan Stevenson MD Abdomen/Pelvis CT 02/17/17 0011 Signed Impressions: Service Date/Time: Friday, February 17, 2017 00:38 - CONCLUSION: 1. Posterior dislocation of the left hip associated with multiple left acetabular fractures as above. 2. Fracture right pubic bone extending into right superior pubic ramus and right inferior pubic ramus, mildly displaced. Estevan Stevenson MD Thoracic Spine CT 02/17/17 0000 Signed Impressions: Service Date/Time: Friday, February 17, 2017 00:38 - CONCLUSION: Mild degenerative change. No acute bony abnormality. Estevan Stevenson MD Pelvis X-Ray 02/17/17 0000 Signed Impressions: Service Date/Time: Friday, February 17, 2017 00:19 - CONCLUSION: 1. Comminuted fracture in the left hemipelvis probably around the acetabulum with subluxation of the femoral head. Mildly displaced fracture right pubic bone and superior pubic ramus. Estevan Stevenson MD Lumbar Spine CT 02/17/17 0000 Signed Impressions: Service Date/Time: Friday, February 17, 2017 00:38 - CONCLUSION: 1. 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 No acute bony abnormalities in the lumbar spine. Estevan Stevenson MD Objective Remarks Left lower extremity: dressings c/d/i. +CKS. NVI. sensation intact. cap refill. Assessment & Plan Ortho Post Op Day #: 2 Problem List: Assessment and Plan 1) Left acetabular fracture status post removal of skeletal traction and ORIF - POD 2 -NWB -posterior hip precautions -daily dressing changes start today due to drainage -DC drain POD 2 if minimal drainage -DVT prophylaxis with lovenox. DC with xarelto -Pain Rx on chart -CKS while in bed -radiation hip probably Friday -CM for DC planning: Home vs SNF -f/u [facility] or [facility] in 2 weeks Alan Pratt Feb 23, 2017 08:07
[2017-02-23] MEDS: SODIUM CHLORIDE 0.9% FLUSH 10 ML FLUSH IV FLUSH SCH ×2 (09:24→21:15)
[2017-02-23] MEDS: LACTULOSE SYRUP 20 GM/30 ML CUP PO SCH (09:25)
[2017-02-23] MEDS: INDOMETHACIN 75 MG CONTROLLED RELEASE CAP PO SCH (09:25)
[2017-02-23] MEDS: DOCUSATE SODIUM 50 MG/SENNA 8.6 MG TAB PO SCH ×2 (09:30→21:16)
[2017-02-23 10:03] LABS: HEMATOCRIT 23.6 % (39.0-51.0); MEAN CELL VOLUME 94.4 FL (80.0-100.0); MEAN CORPUSCULAR HEMOGLOBIN 32.3 PG (27.0-34.0); MEAN CORPUSCULAR HGB CONC 34.2 % (32.0-36.0); PLATELET COUNT 299 TH/MM3 (150-450); RED CELL DISTRIBUTION WIDTH 12.8 % (11.6-17.2); REVIEW FLAG FINAL; WHITE BLOOD COUNT 8.7 TH/MM3 (4.0-11.0)
[2017-02-23 10:31] LABS: BICARBONATE 29.4 MEQ/L (21.0-32.0); POTASSIUM 3.9 MEQ/L (3.5-5.1)
[2017-02-23 11:20] VITALS: BP 130/63; PULSE 113; RESP 17; TEMP 97.1; O2SAT 98
[2017-02-23] MEDS: ACETAMINOPHEN/HYDROcodone 325 MG/10 MG TAB PO PRN ×2 (13:10→21:15)
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
[2017-02-23 16:00] VITALS: BP 126/66; PULSE 92; RESP 17; TEMP 96.7; O2SAT 100
[2017-02-23 20:50] VITALS: BP 116/65; PULSE 108; RESP 17; TEMP 96.7; O2SAT 95
[2017-02-23] MEDS: MAGNESIUM HYDROXIDE SUSP 30 ML CUP PO SCH (21:00)
[2017-02-24] MEDS: PANTOPRAZOLE SOD 40 MG DELAYED RELEASE TAB PO SCH (00:21)
[2017-02-24 00:22] VITALS: BP 104/58; PULSE 91; RESP 17; TEMP 97.1; O2SAT 97
[2017-02-24] MEDS: ACETAMINOPHEN/HYDROcodone 325 MG/10 MG TAB PO PRN ×3 (05:25→21:35)
[2017-02-24] MEDS: ENOXAPARIN SODIUM 30 MG/0.3 ML SYRINGE SQ SCH ×2 (05:28→18:19)
[2017-02-24] MEDS: CYCLOBENZAPRINE HCL 10 MG TAB PO SCH ×3 (05:29→21:35)
[2017-02-24] MEDS: ceFAZolin 2 GM PREMIX 50 ML IV SCH ×2 (05:53→15:39)
--- NOTE | 2017-02-24 06:35 | PD.ORT.PN ---
Subjective Subjective Remarks Pain controlled. No new complaints Objective Vitals Vital Signs Date Time Temp Pulse Resp B/P (MAP) Pulse Ox O2 Delivery O2 Flow Rate FiO2 02/24/17 00:22 97.1 91 17 104/58 (73) 97 02/23/17 20:50 96.7 108 17 116/65 (82) 95 02/23/17 16:00 96.7 92 17 126/66 (86) 100 02/23/17 14:35 16 02/23/17 11:20 97.1 113 17 130/63 (85) 98 02/23/17 07:00 96.6 103 16 130/62 (84) 97 I/O 02/23/17 02/23/17 02/23/17 02/24/17 02/24/17 02/24/17 07:00 15:00 23:00 07:00 15:00 23:00 Intake Total 590 ml 660 ml 290 ml Output Total 660 ml Balance -70 ml 660 ml 290 ml Intake Oral 240 ml 660 ml 240 ml IV Total 350 ml 50 ml Output Urine Total 650 ml Drainage Total 10 ml # Voids 1 2 # Bowel Movements 1 1 Result Diagram: 02/23/17 0912 02/23/17 0912 Imaging Last [address] 02/17/1710 Signed Impressions: Service Date/Time: Friday, February 17, 2017 00:32 - CONCLUSION: Normal examination. Estevan Stevenson MD Chest X-Ray 02/17/1710 Signed Impressions: Service Date/Time: Friday, February 17, 2017 00:19 - CONCLUSION: No acute disease. Estevan Stevenson MD Chest CT 02/17/1710 Signed Impressions: Service Date/Time: Friday, February 17, 2017 00:38 - CONCLUSION: 1. Negative for acute traumatic injury within the thorax. No pneumothorax. Estevan Stevenson MD Cervical Spine CT 02/17/1710 Signed Impressions: Service Date/Time: Friday, February 17, 2017 00:32 - CONCLUSION: No acute findings. Estevan Stevenson MD Abdomen/Pelvis CT 02/17/1710 Signed Impressions: Service Date/Time: Friday, February 17, 2017 00:38 - CONCLUSION: 1. Posterior dislocation of the left hip associated with multiple left acetabular fractures as above. 2. Fracture right pubic bone extending into right superior pubic ramus and right inferior pubic ramus, mildly displaced. Estevan Stevenson MD Thoracic Spine CT 02/17/17 0000 Signed Impressions: Service Date/Time: Friday, February 17, 2017 00:38 - CONCLUSION: Mild degenerative change. No acute bony abnormality. Estevan Stevenson MD Pelvis X-Ray 02/17/17 0000 Signed Impressions: Service Date/Time: Friday, February 17, 2017 00:19 - CONCLUSION: 1. Comminuted fracture in the left hemipelvis probably around the acetabulum with subluxation of the femoral head. Mildly displaced fracture right pubic bone and superior pubic ramus. Estevan Stevenson MD Lumbar Spine CT 02/17/17 0000 Signed Impressions: Service Date/Time: Friday, February 17, 2017 00:38 - CONCLUSION: 1. 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 No acute bony abnormalities in the lumbar spine. Estevan Stevenson MD Objective Remarks Left lower extremity: dressings c/d/i. +CKS. NVI. sensation intact. cap refill. Active dorsiflexion/plantar flexion of foot Assessment & Plan Assessment and Plan 1) Left acetabular fracture status post removal of skeletal traction and ORIF - POD 3 -Toe-touch weight-bearing left lower extremity -posterior hip precautions -daily dressing changes- Primapore over incision, begin Xeroform daily on -DVT prophylaxis with lovenox. DC with xarelto -Pain Rx on chart -CKS while in bed -radiation hip today -CM for DC planning: Home vs SNF -f/u shyann Devlin or [facility] in 2 weeks Yosi Anand Jr. Feb 24, 2017 06:34
[2017-02-24 07:47] VITALS: BP 114/66; PULSE 91; RESP 18; TEMP 97; O2SAT 100
[2017-02-24] MEDS: LACTULOSE SYRUP 20 GM/30 ML CUP PO SCH (08:34)
[2017-02-24] MEDS: DOCUSATE SODIUM 50 MG/SENNA 8.6 MG TAB PO SCH ×2 (08:34→21:35)
[2017-02-24] MEDS: INDOMETHACIN 75 MG CONTROLLED RELEASE CAP PO SCH (08:34)
[2017-02-24] MEDS: SODIUM CHLORIDE 0.9% FLUSH 10 ML FLUSH IV FLUSH SCH ×2 (08:35→21:38)
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
[2017-02-24 12:14] VITALS: BP 129/64; PULSE 108; RESP 16; TEMP 95.6; O2SAT 100
[2017-02-24 15:20] VITALS: BP 116/65; PULSE 85; RESP 18; TEMP 97.1; O2SAT 100
[2017-02-24 20:17] VITALS: BP 112/52; PULSE 107; RESP 18; TEMP 97; O2SAT 99
[2017-02-24] MEDS: MAGNESIUM HYDROXIDE SUSP 30 ML CUP PO SCH (21:35)
[2017-02-25] MEDS: PANTOPRAZOLE SOD 40 MG DELAYED RELEASE TAB PO SCH (00:37)
[2017-02-25] MEDS: ACETAMINOPHEN/HYDROcodone 325 MG/10 MG TAB PO PRN ×5 (00:39→16:33)
[2017-02-25 00:40] VITALS: BP 110/70; PULSE 97; RESP 18; TEMP 97.6; O2SAT 99
[2017-02-25] MEDS: ENOXAPARIN SODIUM 30 MG/0.3 ML SYRINGE SQ SCH ×2 (06:05→17:43)
[2017-02-25] MEDS: CYCLOBENZAPRINE HCL 10 MG TAB PO SCH ×2 (06:05→13:44)
--- NOTE | 2017-02-25 06:48 | PD.ORT.PN ---
Subjective Subjective Remarks Pain controlled. No new complaints Objective Vitals Vital Signs Date Time Temp Pulse Resp B/P (MAP) Pulse Ox O2 Delivery O2 Flow Rate FiO2 02/25/17 00:40 97.6 97 18 110/70 (83) 99 02/24/17 20:17 97.0 107 18 112/52 (72) 99 02/24/17 15:20 97.1 85 18 116/65 (82) 100 02/24/17 12:14 95.6 108 16 129/64 (85) 100 02/24/17 07:47 97.0 91 18 114/66 (82) 100 I/O 02/24/17 02/24/17 02/24/17 02/25/17 02/25/17 02/25/17 07:00 15:00 23:00 07:00 15:00 23:00 Intake Total 290 ml 720 ml 409 ml 360 ml Output Total 475 ml Balance -185 ml 720 ml 409 ml 360 ml Intake Oral 240 ml 720 ml 360 ml 360 ml IV Total 50 ml 49 ml Output Urine Total 475 ml # Voids 2 1 1 # Bowel Movements 0 0 0 0 Result Diagram: 02/23/1712 02/23/17911 Imaging Last [address] 02/17/1710 Signed Impressions: Service Date/Time: Friday, February 17, 2017 00:32 - CONCLUSION: Normal examination. Estevan Stevenson MD Chest X-Ray 02/17/1710 Signed Impressions: Service Date/Time: Friday, February 17, 2017 00:19 - CONCLUSION: No acute disease. Estevan Stevenson MD Chest CT 02/17/1710 Signed Impressions: Service Date/Time: Friday, February 17, 2017 00:38 - CONCLUSION: 1. Negative for acute traumatic injury within the thorax. No pneumothorax. Estevan Stevenson MD Cervical Spine CT 02/17/1710 Signed Impressions: Service Date/Time: Friday, February 17, 2017 00:32 - CONCLUSION: No acute findings. Estevan Stevenson MD Abdomen/Pelvis CT 02/17/1710 Signed Impressions: Service Date/Time: Friday, February 17, 2017 00:38 - CONCLUSION: 1. Posterior dislocation of the left hip associated with multiple left acetabular fractures as above. 2. Fracture right pubic bone extending into right superior pubic ramus and right inferior pubic ramus, mildly displaced. Estevan Stevenson MD Thoracic Spine CT 02/17/17 0000 Signed Impressions: Service Date/Time: Friday, February 17, 2017 00:38 - CONCLUSION: Mild degenerative change. No acute bony abnormality. Estevan Stevenson MD Pelvis X-Ray 02/17/17 0000 Signed Impressions: Service Date/Time: Friday, February 17, 2017 00:19 - CONCLUSION: 1. Comminuted fracture in the left hemipelvis probably around the acetabulum with subluxation of the femoral head. Mildly displaced fracture right pubic bone and superior pubic ramus. Estevan Stveenson MD Lumbar Spine CT 02/17/17 0000 Signed Impressions: Service Date/Time: Friday, February 17, 2017 00:38 - CONCLUSION: 1. 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 No acute bony abnormalities in the lumbar spine. Estevan Stevenson MD Objective Remarks Left lower extremity: dressings c/d/i. +CKS. NVI. sensation intact. cap refill. Active dorsiflexion/plantar flexion of foot Assessment & Plan Assessment and Plan 1) Left acetabular fracture status post removal of skeletal traction and ORIF - POD 4 -Toe-touch weight-bearing left lower extremity -posterior hip precautions -daily dressing changes- Primapore over incision, begin Xeroform daily on -DVT prophylaxis with lovenox. DC with xarelto -Pain Rx on chart -CKS while in bed -radiation hip today -CM for DC planning to home today if safe-orthopedically cleared for discharge -f/u renato Devlin or [facility] in 2 weeks Yosi Anand Jr. Feb 25, 2017 06:48
[2017-02-25] MEDS ORDERED: CRUTMIS25 (07:25)
[2017-02-25 07:37] VITALS: BP 99/56; PULSE 92; RESP 18; TEMP 95.9; O2SAT 100
[2017-02-25 08:27] LABS: AUTOMATED NEUTROPHIL # 4.5 TH/MM3 (1.8-7.7); BASOPHIL % 0.5 % (0.0-2.0); EOSINOPHIL # 0.8 TH/MM3 (0-0.4); EOSINOPHIL % 11.4 % (0.0-4.0); HEMATOCRIT 24.9 % (39.0-51.0); HEMO FLAGS DIFF FINAL; LYMPH % 17.5 % (9.0-44.0); LYMPHOCYTE # 1.3 TH/MM3 (1.0-4.8); MEAN CELL VOLUME 93.9 FL (80.0-100.0); MEAN CORPUSCULAR HEMOGLOBIN 31.3 PG (27.0-34.0); MEAN CORPUSCULAR HGB CONC 33.3 % (32.0-36.0); MONO % 9.4 % (0.0-8.0); NEUT % 61.2 % (16.0-70.0); PLATELET COUNT 465 TH/MM3 (150-450); RED BLOOD COUNT 2.65 MIL/MM3 (4.50-5.90); RED CELL DISTRIBUTION WIDTH 12.6 % (11.6-17.2); WHITE BLOOD COUNT 7.3 TH/MM3 (4.0-11.0)
[2017-02-25 08:58] LABS: BICARBONATE 30.1 MEQ/L (21.0-32.0); POTASSIUM 4.2 MEQ/L (3.5-5.1)
[2017-02-25] MEDS: SODIUM CHLORIDE 0.9% FLUSH 10 ML FLUSH IV FLUSH SCH (09:00)
[2017-02-25] MEDS: DOCUSATE SODIUM 50 MG/SENNA 8.6 MG TAB PO SCH (09:09)
[2017-02-25] MEDS: LACTULOSE SYRUP 20 GM/30 ML CUP PO SCH (09:09)
[2017-02-25] MEDS: INDOMETHACIN 75 MG CONTROLLED RELEASE CAP PO SCH (09:09)
[2017-02-25 11:37] VITALS: BP 114/55; PULSE 82; RESP 18; TEMP 96.8; O2SAT 100
[2017-02-25 15:32] VITALS: BP 108/56; PULSE 85; RESP 18; TEMP 96.9; O2SAT 100
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
== END 2017-02-25 18:06 | disposition home or self-care (01) | DRG 516 ==
LOC: NEPI 00:02 → NEDA 01:06 → EDBD 01:06 → N06B 02:35
PROVIDERS: ADMIT Surgery; ATTEND Surgery
PROC: 0QS5XZZ Reposition Left Acetabulum, External Approach (ICD-10-PCS; 2017-02-17)
PROC: 0SSBXZZ Reposition Left Hip Joint, External Approach (ICD-10-PCS; 2017-02-17)
PROC: 0QS504Z Reposition Left Acetabulum with Internal Fixation Device, Open Approach (ICD-10-PCS; principal; 2017-02-21 13:59)
DX: S32.462A Displaced associated transverse-posterior fracture of left acetabulum, initial encounter for closed fracture (principal); S32.511A Fracture of superior rim of right pubis, initial encounter for closed fracture; S32.591A Other specified fracture of right pubis, initial encounter for closed fracture; S73.015A Posterior dislocation of left hip, initial encounter; V47.5XXA Car driver injured in collision with fixed or stationary object in traffic accident, initial encounter; X37.0XXA Hurricane, initial encounter; Y92.410 Unspecified street and highway as the place of occurrence of the external cause
CPT/HCPCS: 70450; 71010; 71260; 72125; 72128; 72131; 72170; 73502; 73503; 73700; 74177; 76000; 76377; 77290; 77307; 77334; 77336; 77412; 77417; 77431; 80048; 80053; 80307; 82435; 82565; 82805; 82947; 84132; 84295; 84520; 85014; 85018; 85025; 85027; 85384; 85610; 85730; 86850; 86900; 86901; 86920; 94150; 96365; 96375; 99221; C1713; E0880; J0131; J0330; J0690; J1170; J1580; J1644; J1650; J2060; J2250; J2270; J2370; J2405; J2710; J3010; J3370; J7030; J7050; J7120; Q9967

== ENCOUNTER 2017-03-06 00:51 | Emergency (ER) | payer SELFPAY ==
[~2017-03-06] VITALS: Ht 177.8 cm; Wt 75.0 kg
[~2017-03-06 00:51] MED LIST: CRUTMIS25; DOCU1CAP39 PO; HYDR-3583 PO; MAGN400S PO; WALKER/ADULT/FO1 MIS; XARE10TA PO
[2017-03-06 00:53] VITALS: BP 132/58; PULSE 111; RESP 16; TEMP 98.6; O2SAT 99
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
[2017-03-06] MEDS ORDERED: BACT800T5 PO (02:11)
[2017-03-06] MEDS ORDERED: CLINDAMYCIN PHOS 600 MG/4 ML VIAL IM ONE (02:15)
== END 2017-03-06 02:58 | disposition home or self-care (01) ==
LOC: NEPE 00:51
DX: L03.211 Cellulitis of face (principal); L03.115 Cellulitis of right lower limb
CPT/HCPCS: 96372